=== PATIENT | male | born 1950 | race Caucasian/White ===

== ENCOUNTER 2020-08-10 20:52 | Emergency (ER) | payer MEDICARE ==
[2020-08-10] MEDS ORDERED: EPINEPHrine 1MG/10ML SYRINGE 1.5IN IV STA (20:54)
[2020-08-10 22:27] LABS: RSV AMPLIFICATION NEGATIVE (NEGATIVE)
== END 2020-08-11 | disposition expired ==
LOC: M ED 20:52
DX: I10 Essential (primary) hypertension; E78.5 Hyperlipidemia, unspecified